=== PATIENT | male | born 1985 | race African-American/Black ===

== ENCOUNTER 2017-07-27 10:09 | Emergency (ER) | payer OTHER ==
[~2017-07-27] VITALS: Ht 165.1 cm; Wt 72.6 kg
[~2017-07-27 10:09] MED LIST: NAPROSYN500 MG PO; ONDANSETRON HCL4 M2 PO
[2017-07-27] MEDS ORDERED: KEFLEX250 MG PO (10:41)
[2017-07-27] MEDS ORDERED: BACTRIM DS TAB1 EACH PO (10:41)
[2017-07-27 10:50] VITALS: BP 129/83
== END 2017-07-27 10:58 | disposition home or self-care (01) ==
LOC: ER 10:09
DX: L02.01 Cutaneous abscess of face (principal); L02.414 Cutaneous abscess of left upper limb; W57.XXXA Bitten or stung by nonvenomous insect and other nonvenomous arthropods, initial encounter; Y93.89 Activity, other specified; Y92.89 Other specified places as the place of occurrence of the external cause; Y99.8 Other external cause status; F17.210 Nicotine dependence, cigarettes, uncomplicated; F10.99 Alcohol use, unspecified with unspecified alcohol-induced disorder

== ENCOUNTER 2020-05-20 19:02 | Emergency (ER) | payer BC ==
[~2020-05-20] VITALS: Ht 165.1 cm; Wt 72.6 kg
[~2020-05-20 19:02] MED LIST changes: +BACTRIM DS TAB1 EACH PO; +KEFLEX250 MG PO
[2020-05-20 21:25] VITALS: BP 120/83
== END 2020-05-20 21:26 | disposition home or self-care (01) ==
LOC: ER 19:02
DX: R11.2 Nausea with vomiting, unspecified (principal); R19.7 Diarrhea, unspecified; F17.210 Nicotine dependence, cigarettes, uncomplicated; Z96.22 Myringotomy tube(s) status

== ENCOUNTER 2020-08-25 19:49 | Emergency (ER) | payer BC ==
[~2020-08-25] VITALS: Ht 167.6 cm; Wt 79.4 kg
[2020-08-25 22:11] LABS: ABSOLUTE NEUTROPHILS 15.5 thou/uL (1.4-8.2); BASOPHILS 0.5 % (0.0-2.0); EOSINOPHILS 0.7 % (0.0-3.0); HEMATOCRIT 52.2 % (42.0-52.0); HEMOGLOBIN 17.7 gm/dL (14.0-18.0); LYMPHOCYTES 3.9 % (24.0-44.0); MCH 30.7 pg (26.0-34.0); MCV 90.4 fL (80.0-100.0); MONOCYTES 4.5 % (1.0-8.0); PLATELET COUNT 228 thou/uL (150-400); POLYS 90.4 % (36.0-66.0); RBC 5.77 mil/uL (4.50-6.00); RDW 13.8 % (10.5-14.5); WBC 17.1 thou/uL (4.0-11.0)
[2020-08-25 22:16] LABS: CALCIUM 9.5 mg/dL (8.5-10.1); CREATININE 1.2 mg/dL (0.7-1.3)
[2020-08-25 22:22] LABS: ALBUMIN 4.4 g/dL (3.4-5.0); TOTAL BILIRUBIN 0.9 mg/dL (0.2-1.0); TOTAL PROTEIN 8.9 g/dL (6.4-8.2)
[2020-08-25] MEDS ORDERED: ZOFRAN ODT4 MG PO (23:58)
[2020-08-25] MEDS ORDERED: BENTYL 20 MG TA20 M1 PO (23:58)
[2020-08-26 00:08] VITALS: BP 116/71
== END 2020-08-26 00:19 | disposition home or self-care (01) ==
LOC: ER 19:49
PROVIDERS: Emergency Medicine
DX: K52.9 Noninfective gastroenteritis and colitis, unspecified (principal); R11.2 Nausea with vomiting, unspecified; F17.210 Nicotine dependence, cigarettes, uncomplicated; Z96.22 Myringotomy tube(s) status

== ENCOUNTER 2021-01-06 18:29 | Emergency (ER) | payer BC ==
[~2021-01-06] VITALS: Ht 165.1 cm; Wt 70.3 kg
[~2021-01-06 18:29] MED LIST changes: +BENTYL 20 MG TA20 M1 PO; +ZOFRAN ODT4 MG PO
[2021-01-06 18:30] VITALS: BP 124/63
== END 2021-01-06 19:10 | disposition home or self-care (01) ==
LOC: ER 18:29
DX: R09.81 Nasal congestion (principal); F17.210 Nicotine dependence, cigarettes, uncomplicated; Z79.899 Other long term (current) drug therapy; Z20.822 Contact with and (suspected) exposure to COVID-19

== ENCOUNTER 2021-04-21 22:17 | Emergency (ER) | payer BC ==
[~2021-04-21] VITALS: Ht 165.1 cm; Wt 81.7 kg
[2021-04-21 22:19] VITALS: BP 132/84
--- NOTE | 2021-04-22 07:16 | EKG ---
[place] [address] [facility] [place] [address] ELECTROCARDIOGRAM REPORT Name: JINNY WAYNE [facility] [id number] Admission: 04/21/21 Attend Phys: Discharge: 04/21/21 Date of : 83 Report #: [id number] [facility] ED Test Date: 2021-04-21 Test Time: 22:55:23 Pat Name: JINNY WAYNE Department: Room: Gender: Sketch Maker: MEGHANA : 1985 Requested By: En Leblanc Order Number: [id number] MD: Gian Peoples Measurements Intervals [place] Rate: 104 P: 18 DE: 137 QRS: 26 QRSD: 81 T: -2 QT: 319 QTc: 420 Interpretive Statements Sinus tachycardia Borderline T abnormalities, inferior leads Compared to ECG 06/24/2014 04:03:28 T-wave abnormality now present Sinus rhythm no longer present Electronically Signed On 04-22-2021 7:16:08 CDT by Gian Peoples [email or web address] <ELECTRONICALLY SIGNED> By: Gian Peoples MD, [facility] 04/22/21 0716 D: [id number] Gian Peoples MD, FACC /EPI
== END 2021-04-21 23:51 | disposition home or self-care (01) ==
LOC: ER 22:17
DX: R42 Dizziness and giddiness (principal); R05 Cough; Z20.822 Contact with and (suspected) exposure to COVID-19; F17.210 Nicotine dependence, cigarettes, uncomplicated

== ENCOUNTER 2021-07-07 16:02 | Emergency (ER) | payer BC ==
[~2021-07-07] VITALS: Ht 165.1 cm; Wt 79.4 kg
[2021-07-07 16:05] VITALS: BP 112/67
[2021-07-07] MEDS ORDERED: LIPITOR 40 MG T40 M1 PO (16:08)
[2021-07-07] MEDS ORDERED: ZANAFLEX4 MG PO (17:01)
== END 2021-07-07 19:24 | disposition home or self-care (01) ==
LOC: ER 16:02
DX: S39.012A Strain of muscle, fascia and tendon of lower back, initial encounter (principal); F17.210 Nicotine dependence, cigarettes, uncomplicated; Z79.899 Other long term (current) drug therapy; X58.XXXA Exposure to other specified factors, initial encounter; Y93.89 Activity, other specified; Y92.89 Other specified places as the place of occurrence of the external cause; Y99.8 Other external cause status

== ENCOUNTER 2021-08-25 23:22 | Emergency (ER) | payer BC ==
[~2021-08-25] VITALS: Ht 165.1 cm; Wt 74.8 kg
[~2021-08-25 23:22] MED LIST changes: +LIPITOR 40 MG T40 M1 PO; +ZANAFLEX4 MG PO
[2021-08-25] MEDS ORDERED: CYCLOBENZAPRINE5 MG PO (23:35)
[2021-08-25] MEDS ORDERED: FAMOTIDINE 20 M20 MG PO (23:35)
[2021-08-26 00:15] VITALS: BP 117/77
== END 2021-08-26 00:16 | disposition home or self-care (01) ==
LOC: ER 23:22
DX: M62.830 Muscle spasm of back (principal); M54.50 Low back pain, unspecified; E78.00 Pure hypercholesterolemia, unspecified; F17.210 Nicotine dependence, cigarettes, uncomplicated; F12.90 Cannabis use, unspecified, uncomplicated; Z79.891 Long term (current) use of opiate analgesic; Z79.899 Other long term (current) drug therapy